=== PATIENT | male | born 1935 | race Caucasian/White ===

== ENCOUNTER 2020-07-18 12:40 | Emergency (ER) | payer MEDICARE, OTHER ==
[2020-07-18] MEDS ORDERED: Sodium Chloride 0.9% 10 ML Syringe FLUSH PRN (13:11)
[2020-07-18 13:54] LABS: PTT,PARTIAL THROMBOPLSTIN TIME 38.3 SEC (25.6-32.8)
[2020-07-18 14:13] LABS: CHLORIDE,CL 100 mmol/L (98-107); SODIUM,NA 136 mmol/L (136-145)
[2020-07-18 14:15] LABS: ANION GAP 15.4 mmol/L (10-20)
--- NOTE | 2020-07-18 14:19 | CR ---
[id number] RAD/RAD Chest PA or AP 1V EXAM: SINGLE VIEW CHEST. INDICATION: SYNCOPE COMPARISON: NO PREVIOUS SIMILAR EXAM IS AVAILABLE FINDINGS: The lungs are clear The cardiac silhouette is enlarged The thoracic aorta is tortuous IMPRESSION: NO PNEUMONIA OR EDEMA. CARDIOMEGALY TORTUOUS THORACIC AORTA PARTIAL EVENTRATION LEFT HEMIDIAPHRAGM Ever Montanez MD 07/18/20 [id number] Thank you for allowing us to participate in the care of your patient.
[2020-07-18] MEDS ORDERED: Sodium Chloride 0.9% 1,000 ML IV ONE (14:25)
--- NOTE | 2020-07-18 14:56 | EDM.PDOC ---
ED HPI GENERAL MEDICAL PROBLEM - General Chief Complaint: General Time Seen by Provider: 07/18/20 13:03 Source of Information: Reports: Patient, EMS, Family - History of Present Illness INITIAL COMMENTS - FREE TEXT/NARRATIVE: Isaac is an 84 y/o male who was walking outside and he reports becoming dizzy and nauseated and then fell to the ground. He landed on his butt. reports no LOC, he just seemed to sit down. He is complaining of pain in his left shoulder, but his states he complains of this every day. He denies any chest pain. He has had a decreased appetite over the course of the last year and reports that he has lost 40#. He is sometimes forgetful according o his . - Related Data Allergies Allergy/AdvReac Type Severity Reaction Status Date / Time No Known Drug Allergies Allergy Itching Verified 07/18/20 14:10 Home Meds: Home Meds Acetaminophen [Tylenol Extra Strength] 1,000 mg PO Q8HR PRN 07/10/14 [History] Benazepril HCl [Lotensin] 20 mg PO DAILY 07/10/14 [History] Cholecalciferol (Vitamin D3) [D3 Dots] 4,000 units PO DAILY 07/10/14 [History] Folic Acid 1 mg PO DAILY 07/10/14 [History] Furosemide [Lasix] 20 mg PO DAILY 07/10/14 [History] Insulin Aspart [NovoLOG] 40 units SQ TIDAC 07/10/14 [History] Metoprolol Succinate [Toprol Xl] 100 mg PO DAILY 07/10/14 [History] Warfarin [Coumadin] 5 mg PO DAILY 07/10/14 [History] amLODIPine [Norvasc] 5 mg PO DAILY 07/10/14 [History] predniSONE 5 mg PO DAILY 07/10/14 [History] traMADol [Ultram] 50 - 100 mg PO Q6H PRN 07/10/14 [History] DULoxetine [Cymbalta] 30 mg PO DAILY 07/18/20 [History] Fluticasone Propionate [Flonase] 1 spray NS DAILY PRN 07/18/20 [History] Gabapentin [Neurontin] 300 mg PO BEDTIME 07/18/20 [History] Insulin Glargine,Hum.Rec.Anlog [Basaglar Kwikpen U-100] 32 unit SQ BEDTIME 07/18/20 [History] Social & Family History - Tobacco Use Tobacco Use Status *Q: Former Tobacco User Used Tobacco, but Quit: Yes Month/Year Tobacco Last Used: 2009 - Recreational Drug Use Recreational Drug Use: No ED ROS GENERAL - Review of Systems Review Of Systems: See Below Constitutional: Reports: Weakness, Decreased Appetite HEENT: Reports: No Symptoms Respiratory: Reports: No Symptoms Cardiovascular: Reports: No Symptoms Endocrine: Reports: No Symptoms GI/Abdominal: Reports: Nausea : Reports: No Symptoms Musculoskeletal: Reports: Joint Pain (left shoulder pain) Skin: Reports: No Symptoms Neurological: Reports: Dizziness, Weakness Psychiatric: Reports: No Symptoms Hematologic/Lymphatic: Reports: No Symptoms Immunologic: Reports: No Symptoms ED EXAM, GENERAL - Physical Exam Exam: See Below General Appearance: Alert, WD/WN, No Apparent Distress (Elderly male.) Ears: Normal Canal, Hearing Grossly Normal, Normal TMs Nose: Normal Inspection, Normal Mucosa Throat/Mouth: Normal Voice, Other (Lips and tongue slightly dry.) Head: Atraumatic, Normocephalic Neck: Normal Inspection, Supple Respiratory/Chest: No Respiratory Distress, Lungs Clear, Normal Breath Sounds, Chest Non-Tender Cardiovascular: Normal Peripheral Pulses, Regular Rate, Rhythm, No Edema GI/Abdominal: Normal Bowel Sounds, Soft (Male) Exam: Deferred Rectal (Males) Exam: Deferred Extremities: Other (No peripheral vascular changes to lower legs with darkened color and sry scaly skin.) Neurological: Alert, Oriented, CN II-XII Intact, Slow to Respond, Other (Sometimes forgetful and trying to recall info when asked.) Skin Exam: Warm, Dry, Intact, Normal Color Lymphatic: No Adenopathy #1 Interpretation EKG Date: 07/18/20 Time: 12:54 Rhythm: NSR Rate (Beats/Min): 93 [place]: Normal P-Wave: Present QRS: Normal ST-T: Normal QT: Prolonged Comparison: NA - No Prior EKG EKG Interpretation Comments: SR Course - Vital Signs Text/Narrative:: 1303 The patient was seen by the [facility]. EKG, CXR, and labs ordered. 1420 Lab reviewed. Note BUN=24, spnmqbx=175 other chemistries WNL. AST=44, and Total Bili=1.2 no previous values on file for comparison. WBC=13.0 and Neuts=83.8%, no clear course of infection. CXR negative. 1 liter of NS ordered due to elevated BUN aill collect UA. Will also repeat Trop in 3 hours to exclude ACS. Noted in the remote past in his chart it was documented that he has had some postural hypotension. Orthostatic vitals done today and negative. 1615 Patient has been unable to void, but is incontinent urine most of the time. RN attempted to cath patient, by foreskin is so tight, unable to retract penis. UA pending. 1635 Serial Troponin ordered. Patient has been resting. 1740 Serial Troponin neg. Able to obtain UA with void, results neg other then +blood. Since his WBC is elevated with a left shift, will given him Ceftriaxone 1gm IM here in the ED and then have him follow up with his PCP on Thursday for a repeat CBC and recheck. Patient is getting very impatient and wants to go home. He had no further dizziness here in the ER. Written discharge instructions were given and he left the ER in stable condition. Able to ambulate out of the ER independently. Last Recorded V/S: Last Vital Signs Temp 35.5 C L 07/18/20 12:45 Pulse 94 07/18/20 12:45 Resp 16 07/18/20 12:45 BP 157/101 H 07/18/20 12:45 Pulse Ox 97 07/18/20 12:45 Orthostatic Blood Pressure [ 132/105 Standing] Orthostatic Blood Pressure [ 132/87 Sitting] Orthostatic Blood Pressure [ 139/89 Supine] - Orders/Labs/Meds Orders: Active Orders 24 hr Category Date Time Status EKG Documentation Completion [RC] STAT Care 07/18/20 13:11 Active Orthostatic Vital Signs [RC] ASDIRECTED Care 07/18/20 13:14 Active Sodium Chloride 0.9% [Saline Flush] Med 07/18/20 13:11 Active 10 ml FLUSH ASDIRECTED PRN Saline Lock Insert [OM.PC] Stat Oth 07/18/20 13:11 Ordered Medication Orders Sodium Chloride (Saline Flush) 10 ml FLUSH ASDIRECTED PRN PRN Reason: Keep Vein Open Labs: Laboratory Tests 07/18/20 07/18/20 07/18/20 Range/Units 13:30 13:30 13:30 WBC 13.0 H (4.0-10.0) x10^3/uL RBC 4.93 (4.5-6.0) x10^6/uL Hgb 13.9 L D (14.0-18.0) g/dL Hct 43.1 (40.0-52.0) % MCV 87.4 D (78.0-93.0) fL MCH 28.2 (26.0-32.0) pg MCHC 32.3 (32.0-36.0) g/dL RDW Coeff of Sherry 14.3 (10.0-15.0) % Plt Count 260 (130-400) x10^3/uL Neut % (Auto) 83.8 H (50.0-80.0) % Lymph % (Auto) 6.6 L (25.0-50.0) % [place] % (Auto) 8.5 (2.0-11.0) % Eos % (Auto) 0.8 (0.0-4.0) % Baso % (Auto) 0.3 (0.2-1.2) % PT 25.9 H (9.5-12.3) SEC INR 2.5 (2.0-3.5) APTT 38.3 H (25.6-32.8) SEC Sodium 136 (136-145) mmol/L Potassium 4.4 (3.5-5.1) mmol/L Chloride 100 (98-107) mmol/L Carbon Dioxide 25 (21-32) mmol/L Anion Gap 15.4 (10-20) mmol/L BUN 24 H (7-18) mg/dL Creatinine 0.9 (0.70-1.30) mg/dL Est Cr Clr Drug Dosing TNP Estimated GFR (MDRD) > 60 Glucose 243 H (74-106) mg/dL Calcium 8.7 (8.5-10.1) mg/dL Corrected Calcium 9.34 (8.5-10.1) mg/dL Magnesium 1.8 (1.8-2.4) mg/dL Total Bilirubin 1.2 H (0.2-1.0) mg/dL AST 44 H (15-37) U/L ALT 48 (16-63) U/L Alkaline Phosphatase 64 (46-116) U/L Troponin I < 0.017 (<=0.056) ng/mL Total Protein 7.2 (6.4-8.2) g/dL Albumin 3.2 L (3.4-5.0) g/dL Globulin 4.0 Albumin/Globulin Ratio 0.80 Urine Color (YELLOW) Urine Appearance (CLEAR) Urine pH (5.0-8.0) Ur Specific [place] Urine Protein (NEGATIVE) mg/dL Urine Glucose (UA) (NEGATIVE) mg/dL Urine Ketones (NEGATIVE) mg/dL Urine Occult Blood (NEGATIVE) Urine Nitrite (NEGATIVE) Urine Bilirubin (NEGATIVE) Urine Urobilinogen (0.2) EU/dL Ur Leukocyte Esterase (NEGATIVE) Urine RBC (NOT SEEN) /HPF Urine WBC (NOT SEEN) /HPF Ur Squamous Epith Cells (NEGATIVE) /HPF Urine Bacteria (NEGATIVE) /HPF Urine Mucus (NEGATIVE) /LPF 07/18/20 07/18/20 Range/Units 16:53 17:30 WBC (4.0-10.0) x10^3/uL RBC (4.5-6.0) x10^6/uL Hgb (14.0-18.0) g/dL Hct (40.0-52.0) % MCV (78.0-93.0) fL MCH (26.0-32.0) pg MCHC (32.0-36.0) g/dL RDW Coeff of Sherry (10.0-15.0) % Plt Count (130-400) x10^3/uL Neut % (Auto) (50.0-80.0) % Lymph % (Auto) (25.0-50.0) % [place] % (Auto) (2.0-11.0) % Eos % (Auto) (0.0-4.0) % Baso % (Auto) (0.2-1.2) % PT (9.5-12.3) SEC INR (2.0-3.5) APTT (25.6-32.8) SEC Sodium (136-145) mmol/L Potassium (3.5-5.1) mmol/L Chloride (98-107) mmol/L Carbon Dioxide (21-32) mmol/L Anion Gap (10-20) mmol/L BUN (7-18) mg/dL Creatinine (0.70-1.30) mg/dL Est Cr Clr Drug Dosing Estimated GFR (MDRD) Glucose (74-106) mg/dL Calcium (8.5-10.1) mg/dL Corrected Calcium (8.5-10.1) mg/dL Magnesium (1.8-2.4) mg/dL Total Bilirubin (0.2-1.0) mg/dL AST (15-37) U/L ALT (16-63) U/L Alkaline Phosphatase (46-116) U/L Troponin I < 0.017 (<=0.056) ng/mL Total Protein (6.4-8.2) g/dL Albumin (3.4-5.0) g/dL Globulin Albumin/Globulin Ratio Urine Color Yellow (YELLOW) Urine Appearance Slightly cloudy H (CLEAR) Urine pH 5.5 (5.0-8.0) Ur Specific [place] 1.025 Urine Protein Trace H (NEGATIVE) mg/dL Urine Glucose (UA) Negative (NEGATIVE) mg/dL Urine Ketones Negative (NEGATIVE) mg/dL Urine Occult Blood Moderate H (NEGATIVE) Urine Nitrite Negative (NEGATIVE) Urine Bilirubin Negative (NEGATIVE) Urine Urobilinogen 0.2 (0.2) EU/dL Ur Leukocyte Esterase Negative (NEGATIVE) Urine RBC 10-20 H (NOT SEEN) /HPF Urine WBC 0-5 (NOT SEEN) /HPF Ur Squamous Epith Cells Few H (NEGATIVE) /HPF Urine Bacteria Rare (NEGATIVE) /HPF Urine Mucus Occasional H (NEGATIVE) /LPF Meds: Medications Generic Name Dose Route Start Last Admin Trade Name Freq PRN Reason Stop Dose Admin Sodium Chloride 10 ml 07/18/20 13:11 Saline Flush FLUSH ASDIRECTED PRN Keep Vein Open Discontinued Medications Generic Name Dose Route Start Last Admin Trade Name Freq PRN Reason Stop Dose Admin Ceftriaxone Sodium 1 gm 07/18/20 17:46 Rocephin IVPUSH 07/18/20 17:47 STAT ONE Ceftriaxone Sodium 1 gm/ 0 gm 07/18/20 17:40 Lidocaine HCl 2.1 ml IM 07/18/20 17:41 ONETIME ONE Sodium Chloride 1,000 mls @ 500 mls/hr 07/18/20 14:25 Normal Saline IV 07/18/20 16:24 ONETIME ONE Departure - Departure Time of Disposition: 17:46 Disposition: Home, Self-Care 01 Condition: Good Clinical Impression: Near syncope, Neutrophilic leukocytosis - Discharge Information Instructions: Near-Syncope Referrals: Reji Bloom PA-C [Primary Care Provider] - Forms: ED Department Discharge Sepsis Event Note (ED) - Evaluation Sepsis Screening Result: No Definite Risk - Focused Exam Vital Signs: Vital Signs Temp Pulse Resp BP Pulse Ox 07/18/20 12:45 35.5 C L 94 16 157/101 H 97 - My Orders Last 24 Hours: My Active Orders 07/18/20 13:11 EKG Documentation Completion [RC] STAT Sodium Chloride 0.9% [Saline Flush] 10 ml FLUSH ASDIRECTED PRN Saline Lock Insert [OM.PC] Stat 07/18/20 13:14 Orthostatic Vital Signs [RC] ASDIRECTED - Assessment/Plan Last 24 Hours: My Active Orders 07/18/20 13:11 EKG Documentation Completion [RC] STAT Sodium Chloride 0.9% [Saline Flush] 10 ml FLUSH ASDIRECTED PRN Saline Lock Insert [OM.PC] Stat 07/18/20 13:14 Orthostatic Vital Signs [RC] ASDIRECTED Assessment:: 1)Neutrophilic Leukocytosis 2)Near Syncope Plan: -Your white blood cell count was mildly elevated in the ER with no clear source of an infection. -You were given Ceftriaxone 1gm IM here in the ER for antibiotics. -Please go to see your PCP on Thursday for a recheck and repeat CBC -Return to the ER if you have increased symptoms or any other concerns -Stay well hydrated
[2020-07-18] MEDS ORDERED: cefTRIAXone 1 GM, Lidocaine 1% 2.1 ML IM ONE ×2 (17:40)
[2020-07-18] MEDS ORDERED: cefTRIAXone 1 GM Vial IVPUSH ONE (17:46)
[2020-07-18 20:23] VITALS: BP 157/88; PULSE 93
== END 2020-07-18 18:00 | disposition home or self-care (01) ==
LOC: VM.ED 12:40
DX: R55 Syncope and collapse (principal); D72.828 Other elevated white blood cell count; Z87.891 Personal history of nicotine dependence
CPT/HCPCS: 36415; 71045; 80053; 81001; 83735; 84484; 85025; 85610; 85730; 93005; 96374; 99285; J0696; J7030; 93010; 99284

== ENCOUNTER 2021-03-13 09:16 | Emergency (ER) | payer MEDICARE, OTHER ==
[2021-03-13] MEDS ORDERED: Sodium Chloride 0.9% 10 ML Syringe FLUSH PRN (09:56)
[2021-03-13] MEDS ORDERED: Sodium Chloride 0.9% 1,000 ML IV ONE ×2 (09:56→12:37)
--- NOTE | 2021-03-13 10:03 | EDM.PDOC ---
ED HPI GENERAL MEDICAL PROBLEM - General Chief Complaint: General Time Seen by Provider: 03/13/21 09:49 Source of Information: Reports: Patient, EMS - History of Present Illness INITIAL COMMENTS - FREE TEXT/NARRATIVE: Kip is an 85 y/o male who is brought to the ER by EMS after his had trouble getting him up from the bathroom. called 911 for lift assist. Patient has been progressively weaker. Appetite been poor. When EMS arrived to his home, he was cool and clammy and very weak. OG=850 pre=hospital. He denies any specific pain, just not feeling well and getting weaker. 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: IV/IO - Related Data Allergies Allergy/AdvReac Type Severity Reaction Status Date / Time aspirin Allergy Cannot Verified 03/13/21 09:54 Remember [id number]-Eyr Reductase Allergy Cannot Verified 03/13/21 09:54 Inhibitor Remember Home Meds: Home Meds Acetaminophen [Tylenol Extra Strength] 1,000 mg PO Q8HR PRN 07/10/14 [History] Benazepril HCl [Lotensin] 20 mg PO DAILY 07/10/14 [History] Cholecalciferol (Vitamin D3) [D3 Dots] 4,000 units PO DAILY 07/10/14 [History] Folic Acid 1 mg PO DAILY 07/10/14 [History] Furosemide [Lasix] 20 mg PO DAILY 07/10/14 [History] Insulin Aspart [NovoLOG] 40 units SQ TIDAC 07/10/14 [History] Metoprolol Succinate [Toprol Xl] 100 mg PO DAILY 07/10/14 [History] Warfarin [Coumadin] 5 mg PO DAILY 07/10/14 [History] predniSONE 5 mg PO DAILY 07/10/14 [History] traMADol [Ultram] 50 mg PO Q8H PRN 07/10/14 [History] DULoxetine [Cymbalta] 30 mg PO DAILY 07/18/20 [History] Fluticasone Propionate [Flonase] 1 spray NS BID PRN 07/18/20 [History] Gabapentin [Neurontin] 300 mg PO BEDTIME 07/18/20 [History] Insulin Glargine,Hum.Rec.Anlog [Basaglar Kwikpen U-100] 32 unit SQ BEDTIME 07/18/20 [History] Methotrexate 10 mg PO Q7D 03/13/21 [History] Past Medical History Cardiovascular History: Reports: Afib Respiratory History: Reports: Other (See Below) (Sleep Apnea) Genitourinary History: Reports: Prostate Disorder (Prostate CA) Musculoskeletal History: Reports: Gout, Osteoarthritis, RA Endocrine/Metabolic History: Reports: Diabetes, Type II ED ROS GENERAL - Review of Systems Review Of Systems: See Below Constitutional: Reports: Weakness, Decreased Appetite HEENT: Reports: No Symptoms Respiratory: Reports: No Symptoms Cardiovascular: Reports: No Symptoms Endocrine: Reports: No Symptoms, Fatigue GI/Abdominal: Reports: Decreased Appetite : Reports: No Symptoms Skin: Reports: Diaphoresis Neurological: Reports: Difficulty Walking, Weakness Psychiatric: Reports: No Symptoms Hematologic/Lymphatic: Reports: No Symptoms Immunologic: Reports: No Symptoms ED EXAM, GENERAL - Physical Exam Exam: See Below General Appearance: Alert, WD/WN, Other (Elderly male, appears to not feel well.) Eye Exam: Bilateral Eye: PERRL Ears: Normal External Exam, Normal Canal, Normal TMs, Hearing Loss (hard of hearing, hearing aids not in currently) Nose: Normal Inspection Throat/Mouth: Other (Lips and tongue dry) Head: Atraumatic, Normocephalic Neck: Normal Inspection, Supple Respiratory/Chest: No Respiratory Distress, Lungs Clear, Chest Non-Tender Cardiovascular: Normal Peripheral Pulses, Regular Rate, Rhythm, Diastolic Murmur GI/Abdominal: Normal Bowel Sounds, Soft, Non-Tender (Male) Exam: Deferred Rectal (Males) Exam: Deferred Back Exam: Normal Inspection Extremities: Normal Range of Motion, No Pedal Edema, Normal Capillary Refill, Other (Note PVD changes to lower legs) Neurological: Alert, Oriented, CN II-XII Intact, Normal Cognition Psychiatric: Normal Affect Skin Exam: Intact, Normal Color, Cool, Diaphoretic Lymphatic: No Adenopathy #1 Interpretation EKG Date: 03/13/21 Time: 09:55 Rhythm: A-Fib Rate (Beats/Min): 89 [place]: Normal P-Wave: Absent QRS: Normal ST-T: Normal EKG Interpretation Comments: Controlled Atrial Fib Course - Vital Signs Text/Narrative:: 0949 The patient was seen by the [facility] [employer] COORDINATOR. Labs, EKG and CXR ordered. IV fluids ordered. 1120 Note some labs resulting. CBC WBC=13.5, Neuts=84%; Lactic Acid=3.7; CMP BUN=31, Uyjmzqg=118, Mg=1.8; CRP=4.9, NVK=057, COVID neg. Will give more fluids, awaiting UA, will advise RN to cath patient. CXR reviewed, note cardiomegaly with central vascular congestion, no pneumonia. Suspect sepsis, but unsure of infectious source. Ceftriaxone 1gm IVP ordered to cover for Sepsis. BP better with liter of NS in. [address] [facility] contacted. Dr Gastelum, Hospitalist correspondence school instructor, accepted the patient for transfer. Will await bed assignment. Plan transfer to [facility]. IV fluids to continue Patient stable, but guarded on departure with [facility] fro transfer to [place]. Last Recorded V/S: Last Vital Signs Temp 35.8 C L 03/13/21 12:38 Pulse 89 03/13/21 12:38 Resp 18 03/13/21 12:38 BP 137/87 03/13/21 12:38 Pulse Ox 98 03/13/21 12:38 - Orders/Labs/Meds Orders: Active Orders 24 hr Category Date Time Status EKG Documentation Completion [RC] STAT Care 03/13/21 09:56 Active CULTURE BLOOD [BC] Stat Lab 03/13/21 10:17 Results CULTURE BLOOD [BC] Stat Lab 03/13/21 10:26 Results LACTIC ACID [CHEM] Timed Lab 03/13/21 14:20 Ordered Sodium Chloride 0.9% [Normal Saline] 1,000 ml Med 03/13/21 12:37 Active IV ONETIME Sodium Chloride 0.9% [Saline Flush] Med 03/13/21 09:56 Active 10 ml FLUSH ASDIRECTED PRN Blood Culture x2 Reflex Set [OM.PC] Stat Oth 03/13/21 09:56 Ordered Saline Lock Insert [OM.PC] Stat Oth 03/13/21 09:56 Ordered Medication Orders Sodium Chloride (Normal Saline) 1,000 mls @ 999 mls/hr IV ONETIME ONE Stop: 03/13/21 13:37 Last Admin: 03/13/21 12:38 Dose: 999 mls/hr Documented by: VIOLETA Sodium Chloride (Sodium Chloride 0.9% 10 Ml Syringe) 10 ml FLUSH ASDIRECTED PRN PRN Reason: Keep Vein Open Labs: Laboratory Tests 07/03/13/21 03/13/21 Range/Units 10:16 10:17 10:17 WBC 13.5 H (4.0-10.0) x10^3/uL RBC 4.61 (4.5-6.0) x10^6/uL Hgb 12.6 L (14.0-18.0) g/dL Hct 39.2 L (40.0-52.0) % MCV 85.0 (78.0-93.0) fL MCH 27.3 (26.0-32.0) pg MCHC 32.1 (32.0-36.0) g/dL RDW Coeff of Sherry 15.3 H (10.0-15.0) % Plt Count 381 D (130-400) x10^3/uL Add Manual Diff Yes Neutrophils % (Manual) 84 H (50-80) % Lymphocytes % (Manual) 10 L (25-50) % Monocytes % (Manual) 4 (2-11) % Eosinophils % (Manual) 2 (0-4) % Platelet Estimate Adequate PT (9.9-12.5) SEC INR (2.0-3.5) Sodium 143 (136-145) mmol/L Potassium 3.8 (3.5-5.1) mmol/L Chloride 107 (98-107) mmol/L Carbon Dioxide 24 (21-32) mmol/L Anion Gap 15.8 H (5-15) mmol/L BUN 31 H (7-18) mg/dL Creatinine 1.2 (0.70-1.30) mg/dL Est Cr Clr Drug Dosing TNP Estimated GFR (MDRD) 57 Glucose 133 H (70-99) mg/dL Lactic Acid (0.4-2.0) mmol/L Calcium 8.8 (8.5-10.1) mg/dL Corrected Calcium 9.8 (8.5-10.1) mg/dL Magnesium 1.8 (1.8-2.4) mg/dL Total Bilirubin 0.5 (0.2-1.0) mg/dL AST 33 (15-37) U/L ALT 34 (16-63) U/L Alkaline Phosphatase 64 (46-116) U/L Troponin I High Sens 15 (<=76) ng/L C-Reactive Protein 4.9 H (<=0.9) mg/dL NT-Pro-B Natriuret Pep 910 H (<=450) pg/mL Total Protein 8.0 (6.4-8.2) g/dL Albumin 2.8 L (3.4-5.0) g/dL Globulin 5.2 Albumin/Globulin Ratio 0.54 Procalcitonin (0.1-0.50) ng/mL Urine Color (YELLOW) Urine Appearance (CLEAR) Urine pH (5.0-8.0) Ur Specific [place] Urine Protein (NEGATIVE) mg/dL Urine Glucose (UA) (NEGATIVE) mg/dL Urine Ketones (NEGATIVE) mg/dL Urine Occult Blood (NEGATIVE) Urine Nitrite (NEGATIVE) Urine Bilirubin (NEGATIVE) Urine Urobilinogen (0.2) EU/dL Ur Leukocyte Esterase (NEGATIVE) U Hyaline Cast (Auto) Urine RBC (NOT SEEN) /HPF Urine WBC (NOT SEEN) /HPF Ur Squamous Epith Cells (NOT SEEN) /HPF Urine Bacteria (NOT SEEN) /HPF Urine Mucus (NOT SEEN) /LPF SARS CoV-2 RNA Rapid LINK Negative (NEGATIVE) 03/13/21 03/13/21 03/13/21 Range/Units 10:17 10:17 10:17 WBC (4.0-10.0) x10^3/uL RBC (4.5-6.0) x10^6/uL Hgb (14.0-18.0) g/dL Hct (40.0-52.0) % MCV (78.0-93.0) fL MCH (26.0-32.0) pg MCHC (32.0-36.0) g/dL RDW Coeff of Sherry (10.0-15.0) % Plt Count (130-400) x10^3/uL Add Manual Diff Neutrophils % (Manual) (50-80) % Lymphocytes % (Manual) (25-50) % Monocytes % (Manual) (2-11) % Eosinophils % (Manual) (0-4) % Platelet Estimate PT 29.7 H (9.9-12.5) SEC INR 2.7 (2.0-3.5) Sodium (136-145) mmol/L Potassium (3.5-5.1) mmol/L Chloride (98-107) mmol/L Carbon Dioxide (21-32) mmol/L Anion Gap (5-15) mmol/L BUN (7-18) mg/dL Creatinine (0.70-1.30) mg/dL Est Cr Clr Drug Dosing Estimated GFR (MDRD) Glucose (70-99) mg/dL Lactic Acid 3.7 H* (0.4-2.0) mmol/L Calcium (8.5-10.1) mg/dL Corrected Calcium (8.5-10.1) mg/dL Magnesium (1.8-2.4) mg/dL Total Bilirubin (0.2-1.0) mg/dL AST (15-37) U/L ALT (16-63) U/L Alkaline Phosphatase (46-116) U/L Troponin I High Sens (<=76) ng/L C-Reactive Protein (<=0.9) mg/dL NT-Pro-B Natriuret Pep (<=450) pg/mL Total Protein (6.4-8.2) g/dL Albumin (3.4-5.0) g/dL Globulin Albumin/Globulin Ratio Procalcitonin 0.09 L (0.1-0.50) ng/mL Urine Color (YELLOW) Urine Appearance (CLEAR) Urine pH (5.0-8.0) Ur Specific [place] Urine Protein (NEGATIVE) mg/dL Urine Glucose (UA) (NEGATIVE) mg/dL Urine Ketones (NEGATIVE) mg/dL Urine Occult Blood (NEGATIVE) Urine Nitrite (NEGATIVE) Urine Bilirubin (NEGATIVE) Urine Urobilinogen (0.2) EU/dL Ur Leukocyte Esterase (NEGATIVE) U Hyaline Cast (Auto) Urine RBC (NOT SEEN) /HPF Urine WBC (NOT SEEN) /HPF Ur Squamous Epith Cells (NOT SEEN) /HPF Urine Bacteria (NOT SEEN) /HPF Urine Mucus (NOT SEEN) /LPF SARS CoV-2 RNA Rapid LINK (NEGATIVE) 03/13/21 Range/Units 12:03 WBC (4.0-10.0) x10^3/uL RBC (4.5-6.0) x10^6/uL Hgb (14.0-18.0) g/dL Hct (40.0-52.0) % MCV (78.0-93.0) fL MCH (26.0-32.0) pg MCHC (32.0-36.0) g/dL RDW Coeff of Sherry (10.0-15.0) % Plt Count (130-400) x10^3/uL Add Manual Diff Neutrophils % (Manual) (50-80) % Lymphocytes % (Manual) (25-50) % Monocytes % (Manual) (2-11) % Eosinophils % (Manual) (0-4) % Platelet Estimate PT (9.9-12.5) SEC INR (2.0-3.5) Sodium (136-145) mmol/L Potassium (3.5-5.1) mmol/L Chloride (98-107) mmol/L Carbon Dioxide (21-32) mmol/L Anion Gap (5-15) mmol/L BUN (7-18) mg/dL Creatinine (0.70-1.30) mg/dL Est Cr Clr Drug Dosing Estimated GFR (MDRD) Glucose (70-99) mg/dL Lactic Acid (0.4-2.0) mmol/L Calcium (8.5-10.1) mg/dL Corrected Calcium (8.5-10.1) mg/dL Magnesium (1.8-2.4) mg/dL Total Bilirubin (0.2-1.0) mg/dL AST (15-37) U/L ALT (16-63) U/L Alkaline Phosphatase (46-116) U/L Troponin I High Sens (<=76) ng/L C-Reactive Protein (<=0.9) mg/dL NT-Pro-B Natriuret Pep (<=450) pg/mL Total Protein (6.4-8.2) g/dL Albumin (3.4-5.0) g/dL Globulin Albumin/Globulin Ratio Procalcitonin (0.1-0.50) ng/mL Urine Color Yellow (YELLOW) Urine Appearance Clear (CLEAR) Urine pH 5.5 (5.0-8.0) Ur Specific [place] 1.025 Urine Protein Negative (NEGATIVE) mg/dL Urine Glucose (UA) Negative (NEGATIVE) mg/dL Urine Ketones Negative (NEGATIVE) mg/dL Urine Occult Blood Trace-intact H (NEGATIVE) Urine Nitrite Negative (NEGATIVE) Urine Bilirubin Negative (NEGATIVE) Urine Urobilinogen 0.2 (0.2) EU/dL Ur Leukocyte Esterase Negative (NEGATIVE) U Hyaline Cast (Auto) Moderate Urine RBC 0-5 (NOT SEEN) /HPF Urine WBC 0-5 (NOT SEEN) /HPF Ur Squamous Epith Cells Not seen (NOT SEEN) /HPF Urine Bacteria Not seen (NOT SEEN) /HPF Urine Mucus Rare H (NOT SEEN) /LPF SARS CoV-2 RNA Rapid LINK (NEGATIVE) Meds: Medications Generic Name Dose Route Start Last Admin Trade Name Freq PRN Reason Stop Dose Admin Sodium Chloride 1,000 mls @ 999 mls/hr 03/13/21 12:37 03/13/21 12:38 Normal Saline IV 03/13/21 13:37 999 mls/hr ONETIME ONE Administration Sodium Chloride 10 ml 03/13/21 09:56 Sodium Chloride 0.9% 10 Ml Syringe FLUSH ASDIRECTED PRN Keep Vein Open Discontinued Medications Generic Name Dose Route Start Last Admin Trade Name Freq PRN Reason Stop Dose Admin Ceftriaxone Sodium 1 gm 03/13/21 12:16 03/13/21 12:37 Ceftriaxone 1 Gm Vial IVPUSH 03/13/21 12:17 1 gm STAT ONE Administration Sodium Chloride 1,000 mls @ 999 mls/hr 03/13/21 09:56 03/13/21 10:14 Normal Saline IV 03/13/21 10:56 999 mls/hr ONETIME ONE Administration Departure - Departure Time of Disposition: 12:26 Disposition: DC/Tfer to Acute Hospital 02 Condition: Good Clinical Impression: Sepsis Qualifiers: Sepsis type: sepsis due to unspecified organism Sepsis acute organ dysfunction status: unspecified Qualified Code(s): A41.9 - Sepsis, unspecified organism - Discharge Information Referrals: Reji Bloom PA-C [Primary Care Provider] - Forms: ED Department Discharge, Interfacility Transfer [facility] Sepsis Event Note (ED) - Evaluation Sepsis Screening Result: No Definite Risk - Focused Exam Vital Signs: Vital Signs Temp Pulse Resp BP Pulse Ox 03/13/21 12:38 35.8 C L 89 18 137/87 98 03/13/21 11:21 35.1 C L 78 14 130/72 98 03/13/21 09:16 35.2 C L 86 18 99/72 95 - My Orders Last 24 Hours: My Active Orders 03/13/21 09:56 EKG Documentation Completion [RC] STAT Sodium Chloride 0.9% [Saline Flush] 10 ml FLUSH ASDIRECTED PRN Blood Culture x2 Reflex Set [OM.PC] Stat Saline Lock Insert [OM.PC] Stat 03/13/21 10:17 CULTURE BLOOD [BC] Stat 03/13/21 10:26 CULTURE BLOOD [BC] Stat 03/13/21 12:37 Sodium Chloride 0.9% [Normal Saline] 1,000 ml IV ONETIME 03/13/21 14:20 LACTIC ACID [CHEM] Timed - Assessment/Plan Last 24 Hours: My Active Orders 03/13/21 09:56 EKG Documentation Completion [RC] STAT Sodium Chloride 0.9% [Saline Flush] 10 ml FLUSH ASDIRECTED PRN Blood Culture x2 Reflex Set [OM.PC] Stat Saline Lock Insert [OM.PC] Stat 03/13/21 10:17 CULTURE BLOOD [BC] Stat 03/13/21 10:26 CULTURE BLOOD [BC] Stat 03/13/21 12:37 Sodium Chloride 0.9% [Normal Saline] 1,000 ml IV ONETIME 03/13/21 14:20 LACTIC ACID [CHEM] Timed Assessment:: 1)Sepsis-Unknown Source Plan: -Transfer to [facility]
--- NOTE | 2021-03-13 10:27 | CR ---
[id number] RAD/RAD Chest PA or AP 1V EXAM: RAD Chest PA or AP 1V INDICATION: WEAKNESS. COMPARISON: July 18, 2020. DISCUSSION/IMPRESSION: Cardiomegaly and central vascular congestion, similar to the prior examination. COPD. No pneumonia. No pleural effusion or pneumothorax. Ridge Montelongo MD 03/13/21 1026 Thank you for allowing us to participate in the care of your patient.
[2021-03-13 11:03] LABS: CHLORIDE,CL 107 mmol/L (98-107); SODIUM,NA 143 mmol/L (136-145)
[2021-03-13 11:09] LABS: ANION GAP 15.8 mmol/L (5-15)
[2021-03-13] MEDS ORDERED: cefTRIAXone 1 GM Vial IVPUSH ONE (12:16)
[2021-03-13 13:12] VITALS: BP 126/86; PULSE 84
== END 2021-03-13 13:23 | disposition short-term general hospital (02) ==
LOC: VM.ED 09:16
DX: A41.9 Sepsis, unspecified organism (principal); I48.91 Unspecified atrial fibrillation; E11.9 Type 2 diabetes mellitus without complications; M10.9 Gout, unspecified; Z79.01 Long term (current) use of anticoagulants; Z79.4 Long term (current) use of insulin; Z88.8 Allergy status to other drugs, medicaments and biological substances; Z79.899 Other long term (current) drug therapy; Z20.822 Contact with and (suspected) exposure to COVID-19
CPT/HCPCS: 36415; 71045; 80053; 81001; 83605; 83735; 83880; 84145; 84484; 85025; 85610; 86140; 87040; 93005; 93010; 96374; 99284; 99285-25; J0696; J7030; U0002